=== PATIENT | male | born 1960 | race American Indian/Alaskan Native ===

== ENCOUNTER 2019-01-07 09:04 | Observation (INO) | payer MEDICARE ==
[2019-01-07 09:37] LABS: Basophils # (Auto) 0.1 K/mm3 (0.0-0.1); Basophils % (Auto) 0.9 % (0.0-1.8); Eosinophils # (Auto) 0.1 K/mm3 (0.0-0.4); Hematocrit 42.5 % (35.5-45.6); Hemoglobin 14.5 gm/dl (11.8-15.2); Lymphocytes % (Auto) 31.6 % (13.4-35.0); Mean Corpuscular HGB Conc 34 % (32-34); Mean Corpuscular Volume 95 fl (84-94); Monocytes # (Auto) 0.8 K/mm3 (0.0-0.8); Monocytes % (Auto) 11.7 % (0.0-7.3); Platelet Count 178 K/mm3 (140-440)
[2019-01-07 09:48] LABS: BUN/Creatinine Ratio 23; Blood Urea Nitrogen 18 mg/dL (9-20); Calcium 9.1 mg/dL (8.4-10.2); Hemolysis Index 7
[2019-01-07 09:51] LABS: INR 1.02 (0.87-1.13)
[2019-01-07 09:52] LABS: Partial Thromboplastin Time 24.5 Sec. (24.2-36.6)
--- NOTE | 2019-01-07 09:52 | History and Physical Report ---
History of Present Illness Date of examination: 01/07/19 Date of admission: 01/07/2019 Chief complaint: no current complaints History of present illness: The pt is a 58-year-old male who is followed in our office by Dr. Umana. The patient was seen in consultation by us for pre-operative cardiac evaluation as he is scheduled to have left foot surgery done by Dr. Martel. Pt underwent a stress thallium test and echocardiogram done by the cath lab nurse on the north side. The echocardiogram showed normal sized left ventricle with normal systolic function and ejection fraction of 55%. No significant valvular abnormalities noted. No pericardial effusion. Patient also underwent Lexiscan thallium test. That was done by [facility]. Procedure was done on 10/21/2018. Final conclusion was: 1. Myocardial perfusion imaging is moderately abnormal. 2. Imaging study consistent with ischemia. 3. Gated SPECT imaging demonstrated regional wall motion abnormalities. 4. High risk of clinically significant ischemic events. Findings were explained to the patient. He is not complaining of any chest pain at the present time. The patient has not been able to do any exercise, etc., as he has a bandage on his left lower leg. He also has a cast. Pt was recommended cardiac catheterization and coronary arteriography for definitive diagnosis because of abnormal thallium scan, as advised by his previous cath lab nurse and thus he presents today for scheduled elective LHC. Past History Past Medical History: hypertension Medications and Allergies Allergies Allergy/AdvReac Type Severity Reaction Status Date / Time No Known Allergies Allergy Unverified 03/02/13 13:18 Home Medications Medication Instructions Recorded Confirmed Last Taken Type Aspirin/Acetaminophen/Caffeine 1 pkg PO PRN PRN 01/07/19 01/07/19 01/07/19 07:30 History [[place] Ex-Str Powder Packet] 1 pkg Gabapentin [Neurontin] 400 mg PO BID 01/07/19 01/07/19 01/06/19 History 400mg HYDROcodone/APAP 10-325 [[place] 1 tab PO Q4-6H PRN 01/07/19 01/07/19 01/07/19 07:30 History 10-325 mg TAB] 1 tab Losartan/Hydrochlorothiazide 1 tab PO DAILY 01/07/19 01/07/19 01/07/19 07:30 History [Losartan-Hctz 50-12.5 mg Tab] 1 tab Sertraline [Zoloft] 100 mg PO DAILY 01/07/19 01/07/19 01/06/19 History 100mg Active Meds: Active Medications Sodium Chloride (Nacl 0.9% 500 Ml) 500 mls @ 50 mls/hr IV DIRECT NICK Stop: 01/07/19 19:59 Last Admin: 01/07/19 09:40 Dose: 50 mls/hr Documented by: Review of Systems All systems: negative (no compliants) Physical Examination Vital Signs Temp Pulse Resp BP Pulse Ox 98.5 F 66 20 170/95 99 01/07/19 09:26 01/07/19 09:26 01/07/19 09:26 01/07/19 09:26 01/07/19 09:26 General appearance: no acute distress HEENT: Positive: PERRL, Normocephaly, Mucus Membranes Moist Neck: Positive: neck supple, trachea midline Cardiac: Positive: Reg Rate and Rhythm, S1/S2, Systolic Murmur Lungs: Positive: clear to auscultation Neuro: Positive: Grossly Intact Abdomen: Positive: Soft. Negative: Tender Skin: Negative: Rash, Wound Musculoskeletal: No Pain Extremities: Absent: edema Results 01/07/19 09:27 CBC 01/07/19 Range/Units 09:27 WBC 6.5 (4.5-11.0) K/mm3 RBC 4.50 (3.65-5.03) M/mm3 Hgb 14.5 (11.8-15.2) gm/dl Hct 42.5 (35.5-45.6) % Plt Count 178 (140-440) K/mm3 Lymph # 2.0 (1.2-5.4) K/mm3 [place] # 0.8 (0.0-0.8) K/mm3 Eos # 0.1 (0.0-0.4) K/mm3 Baso # 0.1 (0.0-0.1) K/mm3 Assessment and Plan Proceed with [facility]. The patient has been seen in conjunction with Dr. Kirsty Bush who agrees with the assessment and plan of care. - Patient Problems (1) Abnormal stress test Current Visit: Yes Status: Chronic (2) HTN (hypertension) Current Visit: Yes Status: Chronic
[2019-01-07] MEDS ORDERED: HEPARIN/NS 5000 UNIT/500ML(CATH LAB) 1,000 ML IR ONE (09:53)
[2019-01-07] MEDS ORDERED: NITROGLYCERIN SYRINGE 3 ML ONE (09:54)
[2019-01-07] MEDS ORDERED: CALAN ONE (09:54)
[2019-01-07] MEDS ORDERED: NACL 0.9% 500 ML 500 ML IV SCH (10:00)
[2019-01-07] MEDS: VERSED ONE ×2 (10:37→10:42)
[2019-01-07] MEDS: SUBLIMAZE ONE ×2 (10:38→10:42)
[2019-01-07] MEDS: XYLOCAINE 2% INFILTRATI ONE ×2 (10:38→10:46)
[2019-01-07] MEDS: HEPARIN 10,000 UNITS/10 ML ONE ×3 (10:49→11:12)
[2019-01-07] MEDS ORDERED: ALUM-MAG HYDROX-SIMETH 200-200-20MG/5ML ONE (11:28)
[2019-01-07] MEDS ORDERED: EFFIENT PO ONE (11:28)
[2019-01-07] MEDS ORDERED: NORCO 5/325 ONE (12:07)
[2019-01-07] MEDS ORDERED: NORCO 5/325 PO ONE (12:11)
--- NOTE | 2019-01-07 13:56 | Cardiac Catherization Report ---
CARDIAC CATHETERIZATION REFERRING PHYSICIAN: Dr. Hong Umana. INDICATION FOR PROCEDURE: The patient is a very pleasant 58-year-old -[place] gentleman with multiple risk factors of hypertension, tobacco abuse, does endorse chronic shortness of breath, had an abnormal stress test at [facility] with significant degree of inferior ischemia, which was considered high risk, referred for left heart catheterization. Risks, benefits, and potential alternatives explained at length prior to obtaining informed consent. PROCEDURE IN DETAIL: The patient was brought to catheterization lab in a postabsorptive state, prepped and draped in sterile fashion. Keith's test in right hand was normal. A 2 mL of 2% lidocaine was used to anesthetize the right wrist. A standard 6-Setswana hydrophilic sheath was used to cannulate the right radial artery via modified Seldinger technique. All exchanges were performed to exchange a J-tip guidewire. JL3.5 catheter was used to engage the left main. No dampening or ventricularization. Cineangiography performed in multiple projections. JR4 catheter was used to cross the aortic valve under fluoroscopic guidance. Left ventriculography performed in 30 PRIETO and 30 [place] projections via hand injections, catheter flushed. Manual pullback performed with continuous pressure monitoring. Catheter was used to engage the right coronary. Dampening is noted. Angiography performed in all projections. DATA: Aortic pressure is 130/70, LV pressure is 130, LVEDP of 10 mmHg. Left ventriculography revealed normal systolic performance with estimated ejection fraction of 55-60%. The patient remained in normal sinus rhythm throughout the procedure. CORONARY ANATOMY: This is a right dominant system. Right coronary is diffusely diseased with a long complex 99% stenosis proximally. Also in the mid segment, there is another 80-90% stenosis noted, MELISSA 2 flow. Left main without significant disease, bifurcates left anterior descending and left circumflex. Left circumflex is a moderate-sized vessel. There is a 40-50% proximal left circumflex stenosis. LAD is a moderate-sized vessel, courses anterior intergroove. LAD itself with mild luminal irregularities, maximal narrowing of approximately 25% in the mid segment. There is a small first diagonal with severe disease in it; however, this is a 1.0-1.5 vessel. Recommend medical therapy. Given the patient's symptoms, high risk stress test, in preoperative state, we decided to proceed with PCI of the right coronary. Heparin given. Abnormal ACT confirmed. The patient loaded with Effient and aspirin. A JR4 guide with sideholes was used to engage the right coronary. A [place]lin wire was placed in the distal right coronary. I used a 2.5 x 12 balloon to predilate the lesion. Next, we used a 2.5 x 26 bare metal Integrity stent proximally. Excellent angiographic result. The reason I selected a bare metal stent is because of eminent surgery due to ankle injury and shorter time was required, dual antiplatelet therapy. Next, we direct stented the mid RCA lesion with a 2.5 x 12 Integrity bare metal stent. Twelve CELINA for 30 seconds. Excellent final angiographic result overall. Next, intravascular ultrasound was performed, which revealed two well-opposed and well expanded stents. Only [id number] concentric plaque, otherwise no other obstructive disease noted. No dissections, no complications. Final angiogram reveals excellent result, MELISSA 3 flow much improved. I directly supervised the administration of moderate sedation from 10:42 a.m. to 11:32 a.m. CONCLUSIONS: 1. Severe single vessel [place] coronary artery disease with a 99% proximal right coronary stenosis and 90% mid right coronary stenosis in the milieu of dyspnea on exertion, high risk stress test with inferior ischemia. a. Successful IVUS-guided PCI of proximal right coronary with placement of bare metal stent (Integrity 2.5 x 26) with excellent final angiographic and ultrasonographic results. b. Successful IVUS-guided PCI of mid right coronary with placement of bare metal stent (2.5 x 12 Integrity) with excellent final angiographic and ultrasonographic results. 2. A 40-50% proximal left circumflex. Recommend medical management. LAD, left main without significant disease. Diagonal, very small first diagonal with severe disease, but recommend medical management. 3. Preserved left ventricular systolic performance, estimated ejection fraction of 55-60%. 4. No evidence of aortic stenosis. 5. Normal LVEDP. The patient is clinically stable, chest pain free, loaded with Effient, aspirin, statin therapy. Discussed smoking cessation for over 5 minutes. The patient will be admitted and watched overnight. Results of procedure explained to the patient and family. All questions and concerns were addressed. Aggressive primary and secondary prevention measures also discussed. JOB# [id number] SBM/NTS
--- NOTE | 2019-01-07 15:02 | Short Stay Summary ---
Short Stay Documentation Date of service: 01/07/19 - History H&P: dictated Past Medical History: hypertension - Allergies and Medications Current Medications: Allergies No Known Allergies Allergy (Unverified 03/02/13 13:18) Home Medications Medication Instructions Recorded Confirmed Last Taken Type Aspirin/Acetaminophen/Caffeine 1 pkg PO PRN PRN 01/07/19 01/07/19 01/07/19 07:30 History [Goody's Ex-Str Powder Packet] 1 pkg Gabapentin [Neurontin] 400 mg PO BID 01/07/19 01/07/19 01/06/19 History 400mg HYDROcodone/APAP 10-325 [[place] 1 tab PO Q4-6H PRN 01/07/19 01/07/19 01/07/19 07:30 History 10-325 mg TAB] 1 tab Losartan/Hydrochlorothiazide 1 tab PO DAILY 01/07/19 01/07/19 01/07/19 07:30 History [Losartan-Hctz 50-12.5 mg Tab] 1 tab Sertraline [Zoloft] 100 mg PO DAILY 01/07/19 01/07/19 01/06/19 History 100mg Active Medications Aspirin (Baby Aspirin) 81 mg PO QDAY NICK Atorvastatin Calcium (Lipitor) 40 mg PO QHS NICK Hydrochlorothiazide (Hctz) 12.5 mg PO QDAY NICK Sodium Chloride (Nacl 0.9% 500 Ml) 500 mls @ 50 mls/hr IV DIRECT NICK Stop: 01/07/19 19:59 Last Admin: 01/07/19 09:40 Dose: 50 mls/hr Documented by: Losartan Potassium (Cozaar) 50 mg PO QDAY NICK Metoprolol Tartrate (Lopressor) 25 mg PO BID NICK Prasugrel (Effient) 10 mg PO QDAY NICK - Brief post op/procedure progress note Date of procedure: 01/07/19 Pre-op diagnosis: abnormal stress test Post-op diagnosis: other (CAD) Procedure: C with PCI - see dictated cath report Anesthesia: local Estimated blood loss: none Condition: stable - Disposition Condition at discharge: Good Disposition: [id number] TO HOME OR SELFCARE - Discharge Diagnoses (1) CAD (coronary artery disease) Status: Chronic (2) Stented coronary artery Status: Chronic (3) HTN (hypertension) Status: Chronic Short Stay Discharge Plan Activity: advance as tolerated Diet: low fat, low cholesterol, low salt Wound: open to air, keep clean and dry, per your surgeon's advice Follow up with: MOE SHAH MD [Primary Care Provider] - 7 Days JEREMY GOODSON MD [Staff Physician] - 7 Days Prescriptions: AtorvaSTATin [Lipitor] 40 mg PO QHS #30 tablet Prasugrel [Effient] 10 mg PO QDAY #30 tablet Metoprolol [Lopressor TAB] 25 mg PO BID #60 tablet
[2019-01-07] MEDS: ZOLOFT PO SCH (22:26)
[2019-01-07] MEDS: NEURONTIN PO SCH (22:26)
[2019-01-07] MEDS: NORCO 10/325 PO PRN (22:27)
[2019-01-07] MEDS: LOPRESSOR PO SCH (22:27)
[2019-01-08 05:32] LABS: Basophils % (Auto) 0.8 % (0.0-1.8); Eosinophils # (Auto) 0.1 K/mm3 (0.0-0.4); Eosinophils % (Auto) 1.1 % (0.0-4.3); Hematocrit 40.8 % (35.5-45.6); Hemoglobin 13.8 gm/dl (11.8-15.2); Lymphocytes # (Auto) 2.2 K/mm3 (1.2-5.4); Lymphocytes % (Auto) 34.5 % (13.4-35.0); Mean Corpuscular HGB Conc 34 % (32-34); Mean Corpuscular Volume 95 fl (84-94); Monocytes # (Auto) 0.5 K/mm3 (0.0-0.8); Monocytes % (Auto) 8.3 % (0.0-7.3); Platelet Count 157 K/mm3 (140-440); Red Blood Count 4.28 M/mm3 (3.65-5.03); Red Cell Distribution Width 16.1 % (13.2-15.2)
[2019-01-08 05:54] LABS: Creatine Kinase MB 4.5 ng/mL (0.0-4.0)
[2019-01-08 05:56] LABS: BUN/Creatinine Ratio 17; Blood Urea Nitrogen 15 mg/dL (9-20); Calcium 9.5 mg/dL (8.4-10.2); Hemolysis Index 9
[2019-01-08 06:07] LABS: HDL Cholesterol 72 mg/dL (40-59); LDL Cholesterol,Direct 63 mg/dL (50-130)
--- NOTE | 2019-01-08 08:47 | XRay Report ---
CHEST 1 VIEW INDICATION: post pci. COMPARISON: None. FINDINGS: Support devices: None. Heart: Normal. Pulmonary vasculature: Normal. Lungs/Pleura: The lungs are mildly hyperinflated and hyperlucent. No airspace disease or pleural effu miguel. Additional findings: None. IMPRESSION: Mild pulmonary hyperinflation but otherwise normal. Signer Name: Mk Samano MD Signed: 01/08/2019 8:42 AM Workstation Name: [id number]
[2019-01-08] MEDS: ZOLOFT PO SCH (09:39)
[2019-01-08] MEDS: NEURONTIN PO SCH (09:40)
[2019-01-08] MEDS: LOPRESSOR PO SCH (09:40)
[2019-01-08] MEDS: NORCO 10/325 PO PRN (09:46)
[2019-01-08] MEDS ORDERED: COZAAR PO SCH (10:00)
[2019-01-08] MEDS ORDERED: BABY ASPIRIN PO SCH (10:00)
[2019-01-08] MEDS ORDERED: EFFIENT PO SCH (10:00)
[2019-01-08] MEDS ORDERED: HCTZ PO SCH (10:00)
[2019-01-08] MEDS ORDERED: NON-FORMULARY (Losartan/Hydrochlorothiazide [Losartan-Hctz 50-12.5 Mg Tab] 1 TAB) PO SCH (10:00)
--- NOTE | 2019-01-08 10:43 | Progress Note ---
Assessment and Plan Status post stent deployment to right coronary artery obstructive lesion. Patient is stable for discharge. Continue on Proximal statins and beta blockers. Patient was followed by . Subjective Date of service: 01/08/19 Interval history: Doing well without any chest pain. No pain in the right wrist. Patient will take off dressing out after taking a shower. Objective Vital Signs Temp Pulse Resp BP Pulse Ox 01/08/19 09:46 20 01/08/19 09:40 60 168/94 01/08/19 09:39 60 168/94 01/08/19 08:09 98.6 F 56 L 18 168/94 99 01/08/19 04:39 97.6 F 53 L 18 166/93 99 01/07/19 23:38 98.7 F 69 18 148/96 98 01/07/19 22:27 68 169/98 01/07/19 21:09 92 H 01/07/19 20:02 98.7 F 65 18 169/98 98 01/07/19 13:30 70 12 147/82 99 01/07/19 13:15 69 13 145/84 98 01/07/19 12:45 69 19 161/78 98 01/07/19 12:30 65 11 L 162/91 98 01/07/19 12:14 75 14 167/87 98 01/07/19 12:05 12 01/07/19 12:00 73 12 168/92 98 01/07/19 11:43 97.8 F 70 11 L 147/96 99 - Physical Examination HEENT: Positive: PERRL, Normocephaly, Mucus Membranes Moist Neck: Positive: neck supple, trachea midline Neuro: Positive: Grossly Intact Abdomen: Positive: Soft. Negative: Tender Skin: Negative: Rash, Wound Musculoskeletal: No Pain Extremities: Absent: edema - Labs and Meds Cardiac Enzymes 01/08/19 Range/Units 03:44 CK-MB (CK-2) 4.5 H (0.0-4.0) ng/mL Lipids 01/08/19 Range/Units 03:44 Triglycerides 80 (2-149) mg/dL Cholesterol 137 (50-199) mg/dL HDL Cholesterol 72 H (40-59) mg/dL Cholesterol/HDL Ratio 1.90 % CBC 01/08/19 Range/Units 03:44 WBC 6.4 (4.5-11.0) K/mm3 RBC 4.28 (3.65-5.03) M/mm3 Hgb 13.8 (11.8-15.2) gm/dl Hct 40.8 (35.5-45.6) % Plt Count 157 (140-440) K/mm3 Lymph # 2.2 (1.2-5.4) K/mm3 [place] # 0.5 (0.0-0.8) K/mm3 Eos # 0.1 (0.0-0.4) K/mm3 Baso # 0.0 (0.0-0.1) K/mm3 Comprehensive Metabolic Panel 01/08/19 Range/Units 03:44 Sodium 141 (137-145) mmol/L Potassium 4.4 (3.6-5.0) mmol/L Chloride 105.2 (98-107) mmol/L Carbon Dioxide 26 (22-30) mmol/L BUN 15 (9-20) mg/dL Creatinine 0.9 (0.8-1.5) mg/dL Glucose 95 (75-100) mg/dL Calcium 9.5 (8.4-10.2) mg/dL
[2019-01-08 11:01] VITALS: BP 168/94
== END 2019-01-08 12:25 | disposition home or self-care (01) ==
LOC: CATHLABREC 09:04 → INTOOBSV 13:02 → 4A 13:02
PROVIDERS: ADMIT Internal Medicine; ATTEND Internal Medicine
DX: I25.10 Atherosclerotic heart disease of native coronary artery without angina pectoris (principal); I10 Essential (primary) hypertension; F17.210 Nicotine dependence, cigarettes, uncomplicated
CPT/HCPCS: 36415; 71045; 80048; 80061; 82550; 82553; 84484; 85025; 85347; 85610; 85730; 92928; 92978; 93005; 93010; 93458; A9270; C1725; C1753; C1769; C1876; C1887; C1894; G0378; J1644; J2250; J3010; J7040; Q9967